=== PATIENT | male | born 1935 | race Caucasian/White ===

== ENCOUNTER 2016-09-06 09:40 | Outpatient (CLI) | payer MEDICARE ==
[2016-09-06 09:56] LABS: Hemoglobin 15.4 g/dL (14.0-18.0); Mean Corpuscular HGB CONC 33.5 g/dL (32.0-36.0); Mean Corpuscular Hemoglobin 30.2 pg (27.0-31.0); Mean Corpuscular Volume 90.2 fl (80.0-94.0); Mean Platelet Volume 6.8 fL (7.4-10.4); Platelet Count 217 thou/uL (130-400); Red Blood Cell (RBC) Count 5.11 mill/uL (4.70-6.10)
[2016-09-06 10:05] LABS: Hemoglobin A1c 7.7 % (4.0-6.0)
[2016-09-06 10:20] LABS: ALT (SGPT) 18 U/L (0-55); AST (SGOT) 14 U/L (5-34); Albumin 3.9 g/dL (3.4-4.8); Alkaline Phosphatase 67 U/L (40-150); Anion Gap 14 mmol/L (10-20); BUN (Urea Nitrogen) 14 mg/dL (8.4-25.7); Bilirubin, Total 0.5 mg/dL (0.2-1.2); Calc. Creatinine Clearance 0 mL/min (70-130); Calcium 9.2 mg/dL (7.8-10.44); Carbon Dioxide 20 mmol/L (23-31); Cardiac Risk 3.8 (Less than 4.5); Chloride 105 mmol/L (98-107); Cholesterol 161 mg/dL (< 200 Desired); Estimated GFR-MDRD 83; Globulin 2.8 g/dL (2.4-3.5); Glucose 190 mg/dL (83-110); HDL Cholesterol 42 mg/dL (>60 Neg Risk); LDL Cholesterol, Calculated 99 mg/dL; Potassium 4.5 mmol/L (3.5-5.1); Protein, Total 6.7 g/dL (5.8-8.1); Sodium 134 mmol/L (136-145); Triglycerides 102 mg/dL (Less than 150)
[2016-09-06 10:35] LABS: Bilirubin Negative (Negative); Blood, Urine Negative (Negative); Clarity Clear (Clear); Glucose, Urine (Dipstick) Negative (Negative); Leukocyte Negative (Negative); Nitrite Negative (Negative); Protein, Urine (Dipstick) Negative (Neg-Trace); Specific Gravity, Urine 1.015 (1.005-1.030); Urobilinogen 0.2 mg/dL (0.2-1.0); pH, Urine 5.5 (5.0-9.0)
[2016-09-06 10:52] LABS: Free T4 (Free Thyroxine) 0.99 ng/dL (0.70-1.48); PSA-Asymptomatic (SCREENING) 0.51 ng/mL (0-4.0); Thyroid Stimulating Hormone 4.2715 uIU/mL (0.35-4.94)
== END 2016-09-06 09:41 | disposition home or self-care (01) ==
LOC: MADLAB 09:40
PROVIDERS: ATTEND Internal Medicine
DX: Z12.5 Encounter for screening for malignant neoplasm of prostate (principal); E11.9 Type 2 diabetes mellitus without complications; I10 Essential (primary) hypertension; Z79.899 Other long term (current) drug therapy
CPT/HCPCS: 36415; 80053; 80061; 81003; 83036; 84439; 84443; 85027; G0103

== ENCOUNTER 2018-08-21 23:31 | Emergency (ER) | payer MEDICARE ==
[2018-08-22] MEDS ORDERED: Sodium Chloride 0.9% 1,000 ML ONE (00:09)
[2018-08-22] MEDS ORDERED: Acetaminophen 325 MG TAB ONE (00:09)
[2018-08-22 00:28] LABS: ALT (SGPT) 21 U/L (8-55); AST (SGOT) 10 U/L (5-34); Albumin 3.2 g/dL (3.4-4.8); Alkaline Phosphatase 83 U/L (40-150); Anion Gap 19 mmol/L (10-20); BUN (Urea Nitrogen) 22 mg/dL (8.4-25.7); Bilirubin, Total 0.6 mg/dL (0.2-1.2); Calc. Creatinine Clearance 0 mL/min (70-130); Calcium 9.2 mg/dL (7.8-10.44); Carbon Dioxide 20 mmol/L (23-31); Chloride 102 mmol/L (98-107); Estimated GFR-MDRD 58; Globulin 3.3 g/dL (2.4-3.5); Glucose 299 mg/dL (83-110); Potassium 4.5 mmol/L (3.5-5.1); Protein, Total 6.5 g/dL (5.8-8.1); Sodium 136 mmol/L (136-145)
[2018-08-22 00:37] LABS: Band 6 % (5-11); Eosinophils 1 % (0-10); Hemoglobin 14.2 g/dL (14.0-18.0); Lymphocytes 9 % (21-51); MDiff Complete? YES; Mean Corpuscular HGB CONC 32.4 g/dL (32.0-36.0); Mean Corpuscular Hemoglobin 28.4 pg (27.0-31.0); Mean Corpuscular Volume 87.7 fL (78.0-98.0); Mean Platelet Volume 6.2 fL (7.4-10.4); Monocytes 2 % (0-10); Neutrophil 79 % (42-75); Platelet Count 297 thou/uL (130-400); Platelet Morphology Comment Appears Adequate; RBC Morphology Normal; Reactive Lymphocytes 3 % (0-10); Red Blood Cell (RBC) Count 5.01 mill/uL (4.70-6.10); White Blood Cell (WBC) Count 16.5 thou/uL (4.8-10.8)
[2018-08-22 00:38] LABS: Bicarbonate (HCO3v) 22.8 mmol/L (22.0-28.0); CO2 Tension (PvCO2) 32.6 mmHg (40.0-50.0); O2 Tension (PvO2) 134.3 mmHg (35.0-45.0); pH (Venous) 7.453 (7.320-7.430)
[2018-08-22 00:39] LABS: Base Excess-Venous -0.3 mmol/L (-2.0 to 3.0); Calcium, Ionized 1.15 mmol/L (See Comments:); Chloride 104 mmol/L (98-107); Hemoglobin - Calc 16.1 g/dL (14.0-18.0); Potassium 4.3 mmol/L (3.5-5.1); Sodium 135 mmol/L (138-145); T. Carbon Dioxide 23.8 mmol/L (22.0-28.0); vO2 Saturation-calc 99.2 % (60.0-85.0)
[2018-08-22] MEDS ORDERED: Insulin Regular 300 UNITS/3 ML VIAL ONE (01:06)
[2018-08-22] MEDS ORDERED: Ondansetron PF 4 MG/2 ML Vial ONE (01:06)
[2018-08-22] MEDS ORDERED: Cefepime 2 GM VIAL ONE (01:18)
[2018-08-22] MEDS ORDERED: Sodium Chloride 0.9% 100 ML ONE (01:19)
[2018-08-22 02:14] LABS: Bilirubin Negative (Negative); Blood, Urine Moderate (Negative); Glucose, Urine (Dipstick) 250 mg/dL (Negative); Leukocyte Moderate (Negative); Nitrite Negative (Negative); Protein, Urine (Dipstick) 30 mg/dL (Neg-Trace); Urobilinogen 0.2 mg/dL (0.2-1.0); pH, Urine 5.5 (5.0-9.0)
[2018-08-22 02:16] LABS: Clarity Hazy (Clear)
[2018-08-22 02:19] LABS: RBC/HPF 21-50 HPF (0-3)
[2018-08-22 02:20] LABS: Bacteria/HPF 3+ HPF (None Seen)
--- NOTE | 2018-08-22 09:48 | RAD ---
FRONTAL VIEW CHEST: Date: 08/21/18 COMPARISON: 01/16/13. INDICATION: Dyspnea. FINDINGS: Cardiac silhouette is accentuated by portable technique. There is no lobar consolidation, effusion, o r pneumothorax. Partially imaged right shoulder prosthesis is seen. IMPRESSION: No focal consolidation. POS: [facility]
== END 2018-08-22 01:50 | disposition short-term general hospital (02) ==
LOC: MADERS 23:31
DX: A41.9 Sepsis, unspecified organism (principal); E11.65 Type 2 diabetes mellitus with hyperglycemia; I10 Essential (primary) hypertension; Z79.82 Long term (current) use of aspirin; Z79.899 Other long term (current) drug therapy
CPT/HCPCS: 36415; 36416; 71045; 80053; 81003; 81015; 82330; 82435; 82803; 83605; 84132; 84295; 85014; 85025; 87040; 87077; 87086; 87149; 87186; 87804; 96361; 96365; 96375; J0692; J1815; J2405; J7050

== ENCOUNTER 2019-02-26 11:50 | Outpatient (CLI) | payer MEDICARE ==
--- NOTE | 2019-02-26 12:17 | RAD ---
XR Chest Pa Lat STANDARD HISTORY: Cough COMPARISON: 08/22/2018 FINDINGS: The heart size is normal. The lungs are well expanded without focal areas of consolidation, pneumothorax or pleural effusions. There is a right humeral head prostheses. IMPRESSION: No radiographic evidence of acute cardiopulmonary process.
== END 2019-02-26 11:51 | disposition home or self-care (01) ==
LOC: MADRAD 11:50
PROVIDERS: ATTEND Allergy & Immunology
DX: R05 Cough (principal)
CPT/HCPCS: 71046

== ENCOUNTER 2023-04-09 18:00 | Emergency (ER) | payer OTHER, MEDICARE ==
[2023-04-09] MEDS ORDERED: Boostrix 0.5 ML (Tdap) VIAL (>/=7 yrs of age) ONE (18:43)
[2023-04-09] MEDS ORDERED: Bacitracin 1 PK ONE (18:43)
[2023-04-09] MEDS ORDERED: Acetaminophen 500 MG TAB ONE (19:32)
== END 2023-04-09 19:51 | disposition home or self-care (01) ==
LOC: MADERS 18:00
DX: S09.90XA Unspecified injury of head, initial encounter (principal); S00.01XA Abrasion of scalp, initial encounter; S40.211A Abrasion of right shoulder, initial encounter; S80.211A Abrasion, right knee, initial encounter; S51.011A Laceration without foreign body of right elbow, initial encounter; S60.416A Abrasion of right little finger, initial encounter; H61.23 Impacted cerumen, bilateral; Z23 Encounter for immunization; E11.9 Type 2 diabetes mellitus without complications; I10 Essential (primary) hypertension; Z79.899 Other long term (current) drug therapy; Z79.82 Long term (current) use of aspirin; W01.10XA Fall on same level from slipping, tripping and stumbling with subsequent striking against unspecified object, initial encounter
CPT/HCPCS: 70450; 72125; 90471; 90715

== ENCOUNTER 2023-05-08 15:09 | Emergency (ER) | payer MEDICARE ==
[2023-05-08] MEDS ORDERED: Aspirin 325 MG TAB ONE (15:38)
[2023-05-08 15:44] LABS: #Basophils 0.1 thou/uL (0.0-0.2); #Eosinphils 1.2 thou/uL (0.0-0.7); #Monocytes 0.7 thou/uL (0.11-0.59); #Neutrophils 4.9 thou/uL (1.40-6.50); %Basophils 1.2 % (0.0-1.0); %Eosinophils 13.4 % (0.0-10.0); %Lymphocytes 22.4 % (21.0-51.0); %Monocytes 7.3 % (0.0-10.0); %Neutrophils 55.7 % (42.0-75.0); Hematocrit 45.9 % (42.0-52.0); Hemoglobin 14.6 g/dL (14.0-18.0); Mean Corpuscular HGB CONC 31.8 g/dL (32.0-36.0); Mean Corpuscular Hemoglobin 29.6 pg (27.0-31.0); Mean Corpuscular Volume 92.9 fl (78.0-98.0); Mean Platelet Volume 6.5 fL (7.4-10.4); Platelet Count 342 10x3/uL (130-400); RBC Distribution Width 13.5 % (11.5-14.5); Red Blood Cell (RBC) Count 4.94 mill/uL (4.70-6.10); White Blood Cell (WBC) Count 8.8 10x3/uL (4.8-10.8)
[2023-05-08 15:58] LABS: ALT (SGPT) Less than 7 U/L (8-55); AST (SGOT) 10 U/L (5-34); Albumin 3.7 g/dL (3.4-4.8); Alkaline Phosphatase 72 U/L (40-110); Anion Gap 15 mmol/L (10-20); BUN (Urea Nitrogen) 13 mg/dL (8.4-25.7); Bilirubin, Total 0.4 mg/dL (0.2-1.2); Calc. Creatinine Clearance 0 mL/min (70-130); Calcium 9.2 mg/dL (7.8-10.44); Carbon Dioxide 23 mmol/L (23-31); Chloride 103 mmol/L (98-107); Estimated GFR 68; Globulin 3.1 g/dL (2.4-3.5); Glucose 150 mg/dL (83-110); Protein, Total 6.8 g/dL (5.8-8.1); Sodium 137 mmol/L (136-145)
[2023-05-08] MEDS ORDERED: Morphine 4 MG/ML VIAL ONE ×2 (16:10→17:20)
[2023-05-08] MEDS ORDERED: Heparin 25,000 units/D5W 500 ML ONE (16:10)
[2023-05-08] MEDS ORDERED: Heparin 10,000 UNITS/ 10 ML VIAL ONE (16:10)
[2023-05-08] MEDS ORDERED: Ondansetron PF 4 MG/2 ML Vial ONE (16:10)
[2023-05-08] MEDS ORDERED: hydrALAZINE 20 MG/ML VIAL ONE (16:52)
[2023-05-08 16:54] LABS: Prothrombin Time 13.3 sec (12.0-14.7)
[2023-05-08 16:55] LABS: PTT 31.7 sec (22.9-36.1)
[2023-05-08 17:56] LABS: Troponin I 0.124 ng/mL (< 0.028)
== END 2023-05-08 19:40 | disposition short-term general hospital (02) ==
LOC: MADERS 15:09
DX: I21.4 Non-ST elevation (NSTEMI) myocardial infarction (principal); I10 Essential (primary) hypertension; E11.9 Type 2 diabetes mellitus without complications; Z79.899 Other long term (current) drug therapy; Z79.84 Long term (current) use of oral hypoglycemic drugs
CPT/HCPCS: 71045; 80053; 83880; 84484 ×2; 85025; 85379; 85610; 85730; 93005; J0360; 96365; 96366; 96375; 96376; J1644; J2270; J2405

== ENCOUNTER 2025-05-24 09:51 | Outpatient (CLI) | payer MEDICARE ==
[2025-05-24 10:35] LABS: ALT (SGPT) 12 U/L (Less than 45); AST (SGOT) 15 U/L (11-34); Albumin 3.3 g/dL (3.1-4.5); Alkaline Phosphatase 62 U/L (40-110); Anion Gap 16 mmol/L (10-20); BUN (Urea Nitrogen) 12 mg/dL (8.4-25.7); Bilirubin, Total 0.5 mg/dL (0.3-1.2); Calc. Creatinine Clearance 0 mL/min (70-130); Calcium 8.6 mg/dL (7.8-10.44); Carbon Dioxide 19 mmol/L (23-31); Cardiac Risk 2.7 (Less than 4.5); Chloride 109 mmol/L (98-107); Cholesterol 86 mg/dl (< 200 Desired); Globulin 2.9 g/dL (2.4-3.5); Glucose 138 mg/dL (83-110); HDL Cholesterol 32 mg/dL (>60 Neg Risk); LDL Cholesterol, Calculated 39 mg/dL; Potassium 4.2 mmol/L (3.5-5.1); Sodium 140 mmol/L (136-145); Triglycerides 74 mg/dL (Less than 150)
[2025-05-24 13:18] LABS: #Basophils 0.1 thou/uL (0.0-0.2); #Eosinophils 0.3 thou/uL (0.0-0.7); #Lymphocytes 1.4 thou/uL (1.20-3.40); #Monocytes 0.5 thou/uL (0.11-0.59); #Neutrophils 4.8 thou/uL (1.40-6.50); %Basophils 1.3 % (0.0-1.0); %Eosinophils 4.3 % (0.0-10.0); %Lymphocytes 19.2 % (21.0-51.0); %Monocytes 7.5 % (0.0-10.0); %Neutrophils 67.7 % (42.0-75.0); Hematocrit 41.7 % (42.0-52.0); Hemoglobin 13.2 g/dL (14.0-18.0); Mean Corpuscular Hemoglobin 28.3 pg (27.0-31.0); Mean Corpuscular Volume 89.8 fl (78.0-98.0); Platelet Count 245 10x3/uL (130-400); Red Blood Cell (RBC) Count 4.65 mill/uL (4.70-6.10); White Blood Cell (WBC) Count 7.1 10x3/uL (4.8-10.8)
[2025-05-24 13:39] LABS: Glucose, Urine (Dipstick) Negative (Negative); Leukocyte Negative (Negative); Protein, Urine (Dipstick) 30 mg/dL (Neg-Trace); Specific Gravity, Urine 1.020 (1.005-1.030)
[2025-05-24 13:49] LABS: Bacteria/HPF Rare-Few HPF (None Seen); Mucous/LPF 2+ LPF (<2+); RBC/HPF 21-50 HPF (0-3)
[2025-05-24 16:29] LABS: Vitamin D, 25 Hydroxy 29.1 ng/ml (> 30.0)
[2025-05-24 17:17] LABS: Free T4 (Free Thyroxine) 1.06 ng/dL (0.70-1.48)
== END 2025-05-24 09:52 | disposition home or self-care (01) ==
LOC: MADLAB 09:51
PROVIDERS: ATTEND Family Medicine
DX: E11.9 Type 2 diabetes mellitus without complications (principal); E04.1 Nontoxic single thyroid nodule; Z79.899 Other long term (current) drug therapy
CPT/HCPCS: 36415; 80053; 80061; 81001; 82043; 82306; 83036; 84439; 84443; 84480; 84481; 85025